=== PATIENT | female | born 1980 | race Caucasian/White ===

== ENCOUNTER 2019-06-16 11:45 | Emergency (ER) | payer BC ==
[2019-06-16 12:05] VITALS: BP 138/80
--- NOTE | 2019-06-16 12:14 | UC ---
UC General HPI - HPI Summary HPI Summary: 3-4 DAY HX OF EYELID EDGES BEING ITCHY, CRUSTY AND RED. NO EYE PAIN. NO REDNESS TO THE EYES. NO CONTACT USE OR MAKEUP USE. NO URI. PT TRYING OTC ANTIHISTAMINE EYE DROPS AND COMPRESSES WITHOUT RELIEF. - History of Current Complaint Chief Complaint: Enrrique Stated Complaint: POSSIBLE PINK EYE Time Seen by Provider: 06/16/19 12:01 Hx Obtained From: Patient Hx Last Menstrual Period: 01/29/16 Onset/Duration: Gradual Onset Timing: Constant Pain Intensity: 2 Alleviating: NOTHING Associated Signs & Symptoms: Negative: Fever, Headache - Allergy/Home Medications Allergies/Adverse Reactions: Allergies Allergy/AdvReac Type Severity Reaction Status Date / Time No Known Allergies Allergy Verified 06/16/19 12:05 Home Medications: Home Medications Escitalopram Oxalate [Lexapro 10 mg] 10 mg PO DAILY 06/16/19 [History Confirmed 06/16/19] PMH/Surg Hx/FS Hx/Imm Hx Psychological History: Depression - Surgical History Surgical History: None - Family History Known Family History: Positive: Non-Contributory Family History: none - Social History Occupation: Employed Full-time Alcohol Use: Daily Alcohol Amount: summer Substance Use Type: None Smoking Status (MU): Former Smoker When Did the Patient Quit Smoking/Using Tobacco: 2013 - Immunization History Most Recent Tetanus Shot: UNKNOWN Review of Systems All Other Systems Reviewed And Are Negative: No Constitutional: Negative: Fever, Chills Skin: Positive: Rash - EDGES OF EYELIDS Eyes: Negative: Blurred Vision, Diplopia, Eye Redness, Photophobia ENT: Negative: Sore Throat, Ear Ache, Nasal Discharge Neurological: Negative: Headache Physical Exam Triage Information Reviewed: Yes Appearance: Well-Appearing Vital Signs: Initial Vital Signs Temp 98.8 F 06/16/19 11:58 Pulse 87 06/16/19 11:58 Resp 18 06/16/19 11:58 BP 138/80 06/16/19 11:58 Pulse Ox 98 06/16/19 11:58 Vital Signs Reviewed: Yes Eyes: Positive: Other: - No auricular adenopathy. No periorbital edema or periorbital rash. Edges of eyelids at lash line only have mild erythema with slight scaling and slight swelling. Conjunctiva are clear. AC's clear. PERRL, EOMI. Lids everted and no cobblestoning. ENT: Positive: Pharynx normal, TMs normal. Negative: Nasal congestion, Nasal drainage Neck: Positive: Supple, Nontender, No Lymphadenopathy Neurological: Positive: Alert Psychological: Positive: Age Appropriate Behavior Skin Exam: Normal Course/Dx - Differential Dx - Multi-Symptom Differential Diagnoses: Other - no concern for periorbital or orbital cellulitis. c/w blepharitis without risk for contact dermatitis and does not appear fungal. no hx psoriasis. will d/c prior tx with antihistamine eye drop( pt agrees). pt to warm compress, apply eye lubricant and I will add po doxycycline with opthamology f/u. - Diagnoses Provider Diagnosis: Blepharitis of both eyes Discharge ED - Sign-Out/Discharge Documenting (check all that apply): Patient Departure All imaging exams completed and their final reports reviewed: No Studies - Discharge Plan Condition: Stable Disposition: HOME Prescriptions: DOXYcycline CAP(*) [DOXYcycline 100MG CAP(*)] 100 mg PO BID 7 Days #14 cap Patient Education Materials: Blepharitis (ED) Referrals: Moraima Beltrán MD [Primary Care Provider] - If Needed Shreya Camacho MD [Medical Doctor] - Additional Instructions: FOLLOW UP WITH DR CAMACHO'S OFFICE THIS WEEK CALL MONDAY TO BE SEEN ON MONDAY OR SOONER IF WORSE. APPLY A DRY EYE LUBRICANT TWICE DAILY. - Billing Disposition and Condition Condition: STABLE Disposition: Home
== END 2019-06-16 12:34 | disposition home or self-care (01) ==
LOC: UCCORT 11:45
DX: H01.006 Unspecified blepharitis left eye, unspecified eyelid (principal); H01.003 Unspecified blepharitis right eye, unspecified eyelid; Z87.891 Personal history of nicotine dependence
CPT/HCPCS: 99212; G0463